=== PATIENT | female | born 1955 | race Caucasian/White ===

== ENCOUNTER 2025-03-02 18:12 | Inpatient (IN) | payer MEDICARE, BC ==
[~2025-03-02] VITALS: Ht 152.4 cm; Wt 57.5 kg
[~2025-03-02 18:12] MED LIST: CHOLPOW; FUROPOW8; LEVOTHROXINE; SOMA; TRAMADOL
--- NOTE | 2025-03-02 19:50 | ED.PDOC ---
History of Present Illness HPI Comments 69-year-old female is brought in by ambulance from private residence for chief complaint of abdominal pain and distention, nausea, vomiting, and generalized weakness. Patient endorses on 2 week history of nausea and vomiting with a additional onset of abdominal distention for 1 week and pain with associated weakness, today. Last bowel movement was yesterday, which the patient described as being hendrickson and mucousy in appearance. She also reports being constipated and having a fever 2 days ago. Significant history for arthritis, hyperlipidemia, hypertension, hypothyroidism, for aside medication use for chronic edema, and tobacco cigarette use. Denies having any chest pain, shortness of breath, lightheadedness, dizziness, or further associated symptoms. REVIEW OF SYSTEMS: General: No fever, no chills, or fatigue HEENT: No sore throat, no earache, no congestion, no neck pain. Cardiac: No chest pain. No palpitations. Lungs: No shortness of breath, no cough. GI: Abdominal pain and distention, nausea, vomiting, no diarrhea, no con stipation : No dysuria, frequency, or urgency. No hematuria. Musculoskeletal: No joint pain , no joint swelling, no extremity edema. Skin: No rash, no itching. Neuro: Generalized weakness, no headache, no dizziness PHYSICAL EXAM: General: Awake, alert and oriented. No acute distress. Skin: Skin in warm, dry and intact. Appropriate color for ethnicity. HEENT: The head is normocephalic and atraumatic. Conjunctivae are clear without exudates or hemorrhage. Sclera is non-icteric. EOM are intact. No signs of nystagmus. Eyelids are normal in appearance without swelling or lesions. Oral mucosa is pink and moist Neck: The neck is supple with normal range of motion. No JVD. Cardiac: Heart rate and rhythm are normal. No murmurs, gallops, or rubs are auscultated. Respiratory: No signs of respiratory distress. Lung sounds are clear in all lobes bilaterally without rales, rhonchi, or wheezes. Abdominal: Abdomen is distended with generalized tenderness and diminished bowel sounds in all 4 quadrants. Remaining abdomen is soft, non-tender without distention, guarding or rigidity. Extremities: Upper and lower extremities are atraumatic in appearance without deformity or edema. Neurological: The patient is awake, alert and oriented to person, place, and time with normal speech. Speech is clear. There is no facial asymmetry. Psychiatric: Appropriate mood and affect. Good judgement and insight. Chief Complaint: Abdominal Pain Time Seen by MD: 19:10 Primary Care Provider: IvetteA Reviewed Notes: Nurses Notes, Lien Searcher Notes, Medications, Allergies Allergies: Coded Allergies: NO KNOWN ALLERGIES (Unverified , 09/29/12) Home Meds Reported Medications [Cholesterol] (Cholesterol) No Conflict Check 09/29/12 [Tramadol] No Conflict Check 09/29/12 [Soma] No Conflict Check 09/29/12 [Furosemide] (Furosemide) No Conflict Check 09/29/12 [Levothroxine] No Conflict Check 09/29/12 Information Source: Patient, Emergency Med Personnel Mode of Arrival: EMS Severity: Moderate Timing: Weeks Duration: Since onset Prehospital treatment: 12 Lead EKG, Accucheck (145), Embedded Software Architect Past Medical History PAST MEDICAL HISTORY: Arthritis, High Lipids, HTN, Thyroid (Hypothyroidism) Past Medical History (Other): Furosemide use for chronic edema Surgical History: Denies all surgeries BASKET PATCHER History: Denies all BASKET PATCHER Hx Family History Family History: Unknown Social History Smoker: Cigarettes Alcohol: Denies ETOH Use Drugs: Denies Drug Use Lives In: Home Was a procedure done? Was a procedure done?: No Differential Dx Considerations may include: Differential diagnoses considered include: Abdominal aortic aneurysm, MN, esophageal rupture, intestinal obstruction, mesenteric ischemia, perforated viscus or solid organ rupture, CHF with hepatomegaly, pneumonia, abscess, appendicitis, biliary disease, diverticulitis, gastritis, gastroenteritis, hepatitis, hernia, inflammatory bowel disease, pancreatitis, peptic ulcer disease, urinary tract infection, ureteral colic, constipation, GERD, irritable syndrome, abdominal wall pain, nonspecific abdominal pain, herpes zoster, nephrolithiasis. X-Ray, Labs, Meds, VS Vital Signs Date Time Temp Pulse Resp B/P (MAP) Pulse Ox O2 Delivery O2 Flow Rate FiO2 03/02/25 23:22 131/46 03/02/25 22:00 97.7 86 24 99/54 (69) 93 97.7 03/02/25 22:00 89 95 Room Air* 0 21 03/02/25 18:15 97.5 88 16 130/55 98 97.5 Lab Test 03/02/25 20:32 Range/Units White Blood Count 32.3 *H 4.4-10.8 10^3/uL Red Blood Count 3.93 L 4.0-5.20 10^6/uL Hemoglobin 5.5 *L 12.2-16.2 g/dL Hematocrit 20.3 L 36.0-46.0 % Mean Corpuscular Volume 51.7 L 80.0-100.0 fL Mean Corpuscular Hemoglobin 14.1 L 28.0-32.0 pg Mean Corpuscular Hemoglobin Concent 27.3 L 32.0-36.0 g/dL Red Cell Distribution Width 21.6 H 11.8-14.3 % Platelet Count 1077 *H 140-450 10^3/uL Mean Platelet Volume 8.1 6.9-10.8 fL Neutrophils (%) (Auto) 37.0-80.0 % Lymphocytes (%) (Auto) 10.0-50.0 % Monocytes (%) (Auto) 0.0-12.0 % Basophils (%) (Auto) 0.0-2.0 % Neutrophils # (Auto) 1.6-8.6 10 ^3/uL Lymphocytes # (Auto) 0.4-5.4 10 ^3/uL Monocytes # (Auto) 0-1.3 10 ^3/uL Differential Total Cells Counted 100.0 100 Neutrophils % (Manual) 86 H 37.0-80.0 Band Neutrophils % (Manual) 6 Lymphocytes % (Manual) 4 L 10.0-50.0 Monocytes % (Manual) 4 0-12 Eosinophils % (Manual) 0 0-7 Basophils % (Manual) 0 0.0-2.0 Metamyelocytes % (manual) 0 Myelocytes % (Manual) 0 Promyelocytes % (Manual) 0 Blast Cells % (Manual) 0 Reactive Lymphocytes 0 Platelet Estimate Markedly increased Hypochromasia (manual) Marked Anisocytosis (manual) Slight Microcytosis Moderate Ovalocytes Few Prothrombin Time 11.2 9.3-11.8 sec Prothrombin Time INR 1.06 0.9-1.15 Sodium Level 132 L 136-145 mmol/L Potassium Level 2.4 *L 3.5-5.1 mmol/L Chloride Level 85 L 98-107 mmol/L Carbon Dioxide Level 34 H 20-31 mmol/L Anion Gap 13 5-15 Blood Urea Nitrogen 36 H 9-23 mg/dL Creatinine 1.38 H 0.550-1.02 mg/dL Glomerular Filtration Rate Calc 41 >90 mL/min BUN/Creatinine Ratio 26.1 H 10.0-20.0 Serum Glucose 119 H 74-106 mg/dL Lactic Acid Level 1.7 0.4-2.0 mmol/L Calcium Level 8.3 L 8.7-10.4 mg/dL Current Medications Medications (Trade) Dose Ordered Sig/Jhoan Route Start Time Stop Time Status Last Admin Sodium Chloride 1,000 ml @ 1,000 mls/hr Q1H ONCE IV 03/02/25 22:00 03/02/25 22:59 DC 03/02/25 22:20 Sodium Chloride 1,000 ml @ 130 mls/hr Q7H42M ONCE IV 03/02/25 22:00 03/03/25 05:41 03/02/25 22:34 Piperacillin Sod/ Tazobactam Sod 100 ml @ 100 mls/hr ONCE ONCE IV 03/02/25 22:00 03/02/25 22:59 DC 03/02/25 22:20 Potassium Chloride 100 ml @ 50 mls/hr Q2H IV 03/02/25 22:00 03/03/25 01:59 DC 03/03/25 00:07 Fentanyl Citrate 50 mcg ONCE ONCE IV 03/02/25 23:00 03/02/25 23:01 DC 03/02/25 23:22 [place] [id number] Ph: [phone] DIAGNOSTIC IMAGING Diagnostic Imaging Report : [id number] Signed with Erich PATIENT: LIBAN BARTON ACCT: [id number] UNIT: [id number] : 1955 LOC: ER ROOM / BED: / AGE / SEX: 69 / F ADM STATUS: REG ER SERVICE 04 ORDERING PHYSICIAN: JD HOLLEY MD PROCEDURE(s): ABPL - CT AB PEL WO CON-NO ORAL OR IV REASON: abdominal pain and distension ORDER NUMBER(s): [id number], ACCESSION NUMBER(s): [id number] ADDENDUM ADDENDUM # 1 Critical Result: Pneumoperitoneum Findings discussed with JD HOLLEY at 03/02/2025 09:18 PM, and acknowledged receipt and understanding of the findings. ORIGINAL REPORT CT SCAN ABDOMEN AND PELVIS WITHOUT CONTRAST CLINICAL HISTORY: abdominal pain and distension TECHNIQUE: Helical axial images are obtained from the lung bases through the pelvis without oral contrast. No intravenous contrast was administered. Coronal and sagittal reformatted images were generated from thin section reconstructions. One or more of the following radiation dose reduction techniques were used for this examination: automated exposure control, adjustment of the mA and/or kV according to patient size, use of iterative reconstruction technique. COMPARISON: None FINDINGS: LOWER THORAX: Atelectasis/ scarring in the right lung base with associated bronchiectatic changes. ABDOMEN AND PELVIS: Evaluation of visceral and vascular structures is limited due to lack of con trast administration. Pneumoperitoneum is noted. Mainly gaseous distention of the small bowel with possible transition in the right lower quadrant. Scattered foci of pneumoperitoneum in the mesentery as well. No significant free fluid identified at this time. Colonic diverticulosis. Proximal sigmoid colon is ill-defined questionable adjacent fat stranding. Diverticulitis not excluded. The unenhanced liver, spleen, pancreas and adrenals appear grossly unremarkable. Gallbladder is distended. No sizable, radiopaque cholelithiasis. Aortoiliac atherosclerotic calcifications. No evidence of abdominal aortic aneurysm. Cortical thinning with cystic/dysplastic changes of the right kidney. Recommend further workup as clinically indicated. No sizable bladder calculus. Coarse uterine calcifications may be related to myomatous disease. Multilevel degenerative changes of the lumbar spine. IMPRESSION: Pneumoperitoneum concerning for hollow viscus perforation. Recommend urgent surgical consultation. Colonic diverticulosis. The proximal sigmoid colon is not well delineated. Questionable adjacent inflammation. Diverticulitis with perforation is also included in the differential diagnosis. Small bowel dilatation with possible transition in the right lower quadrant. This may reflect obstruction or reactive ileus. Other findings as above. ATED BY: LEANDRO PANG MD DICTATED DATE/TIME: 03/02/252120 SIGNED BY: LEANDRO PANG MD SIGNED DATE/TIME: 03/02/252120 CC: CT SCAN ABDOMEN AND PELVIS WITHOUT CONTRAST CLINICAL HISTORY: abdominal pain and distension TECHNIQUE: Helical axial images are obtained from the lung bases through the pelvis without oral contrast. No intravenous contrast was administered. Coronal and sagittal reformatted images were generated from thin section reconstructions. One or more of the following radiation dose reduction techniques were used for this examination: automated exposure control, ad justment of the mA and/or kV according to patient size, use of iterative reconstruction technique. COMPARISON: None FINDINGS: LOWER THORAX: Atelectasis/ scarring in the right lung base with associated bronchiectatic changes. ABDOMEN AND PELVIS: Evaluation of visceral and vascular structures is limited due to lack of contrast administration. Pneumoperitoneum is noted. Mainly gaseous distention of the small bowel with possible transition in the right lower quadrant. Scattered foci of pneumoperitoneum in the mesentery as well. No significant free fluid identified at this time. Colonic diverticulosis. Proximal sigmoid colon is ill-defined questionable adjacent fat stranding. Diverticulitis not excluded. The unenhanced liver, spleen, pancreas and adrenals appear grossly unremarkable. Gallbladder is distended. No sizable, radiopaque cholelithiasis. Aortoiliac atherosclerotic calcifications. No evidence of abdominal aortic aneurysm. Cortical thinning with cystic/dysplastic changes of the right kidney. Recommend further workup as clinically indicated. No sizable bladder calculus. Coarse uterine calcifications may be related to myomatous disease. Multilevel degenerative changes of the lumbar spine. IMPRESSION: Pneumoperitoneum concerning for hollow viscus perforation. Recommend urgent surgical consultation. Colonic diverticulosis. The proximal sigmoid colon is not well delineated. Questionable adjacent inflammation. Diverticulitis with perforation is also included in the differential diagnosis. Small bowel dilatation with possible transition in the right lower quadrant. This may reflect obstruction or reactive ileus. Other findings as above. ATED BY: LEANDRO PANG MD DICTATED DATE/TIME: 03/02/252112 SIGNED BY: LEANDRO PANG MD SIGNED DATE/TIME: 03/02/252112 CC: Time of 1ST Reevaluation: 19:40 Reevaluation 1ST: Unchanged Patient Education/Counseling: Treatment, Other (Need for admission) Family Education/Counseling: No Family Present SEPSIS Sepsis Screen Date sepsis recognized/suspect: Mar 02, 2025 Time Sepsis recognized/suspect: 1814 Recent Procedure: No On Antibiotic Therapy: No Respiratory Rate >20: No Heart Rate >90: No Temp<36 C (96.8 F) or >38.3 C: No SBP <90 or MAP <65 mmHG: No New Acute Mental Status Change: No Is the patient on CPAP, BIPAP,: No Physician Orders Urinalysis (03/02/25 20:05) Ct Ab Pel Wo Con-No Oral Or Iv (03/02/25 20:05) Sodium Chloride 0.9% (03/02/25 22:00) Type And Screen (03/02/25 21:51) * Surgical Consult (03/02/25 ) Blood Culture (03/02/25 21:55) Admit (03/02/25 23:55) Nitroglycerin Sublingual (Ntrostat Subli (03/03/25 00:00) Morphine Sulfate Injection (03/03/25 00:00) Stat Ekg For Chest Pain (03/02/25 23:55) Notify Md Of Changes From Base (03/02/25 23:55) Commission Associate For 24 Hours (03/02/25 23:55) Emergency Dysrhythmia Protocol (03/02/25 23:55) Rhythm Strips Once Every Shift (03/02/25 23:55) Oxygen By Nasal Cannula (03/02/25 23:55) Vital Signs Date Time Temp Pulse Resp B/P (MAP) Pulse Ox O2 Delivery O2 Flow Rate FiO2 03/02/25 23:22 131/46 03/02/25 22:00 97.7 86 24 99/54 (69) 93 97.7 03/02/25 22:00 89 95 Room Air* 0 21 03/02/25 18:15 97.5 88 16 130/55 98 97.5 Laboratory Tests Test 03/02/25 20:32 Lactic Acid Level 1.7 mmol/L (0.4-2.0) White Blood Count 32.3 10^3/uL (4.4-10.8) *H Medications Medications Dose Ordered Sig/Jhoan Route Start Time Stop Time Status Last Admin Dose Admin Fentanyl Citrate 50 mcg ONCE ONCE IV 03/02/25 23:00 03/02/25 23:01 DC 03/02/25 23:22 Piperacillin Sod/ Tazobactam Sod 100 ml @ 100 mls/hr ONCE ONCE IV 03/02/25 22:00 03/02/25 22:59 DC 03/02/25 22:20 Potassium Chloride 100 ml @ 50 mls/hr Q2H IV 03/02/25 22:00 03/03/25 01:59 DC 03/03/25 00:07 Sodium Chloride 1,000 ml @ 130 mls/hr Q7H42M ONCE IV 03/02/25 22:00 03/03/25 05:41 03/02/25 22:34 Sodium Chloride 1,000 ml @ 1,000 mls/hr Q1H ONCE IV 03/02/25 22:00 03/02/25 22:59 DC 03/02/25 22:20 Departure 1 Departure Time of Disposition: 21:55 Impression: Primary Impression: Pneumoperitoneum Additional Impressions: Severe anemia Hypokalemia Renal failure Disposition: ADMITTED INPATIENT Condition: Serious Comments MDM: 69-year-old female who presents to the emergency department with severe abdomina l pain Workup was positive for pneumoperitoneum suggestive of bowel perforation as well as severe anemia requiring blood transfusion Patient at this time is requesting to be DNR/DNI and comfort care only Patient was seen by Dr. Lopez in the emergency department, she declined any surgical intervention as well as blood transfusion Extensive evaluation was performed in attempt to identify or rule out: (See differential diagnosis section) The following tests were ordered, and results were reviewed by me and discussed with patient: (See diagnostic results section) The following test were independently interpreted by me: N/A I reviewed and agreed with the following test results read by other providers: CT abdomen and pelvis without contrast I reviewed the following notes from the pt's past medical encounters: September 29, 2012 encounter for herpes zoster Additional information was gathered from interviewing the following independent historians: EMS personnel Discussion of management or test interpretation with external physician/other qualified health respiratory care technician: @22:[address] Coley, Addressed an acute or chronic illness that poses a threat to life or bodily function: Bowel perforation, severe anemia Decision regarding hospitalization or escalation of hospital level of care: Risk and benefits of admission for further treatment of patient's condition was co nsidered. Due to patient's current clinical condition, high risk of decline and poor outcome if discharged and need for further inpatient management and monitoring, patient will be admitted to the hospital. Drug therapy requiring intensive monitoring for toxicity: N/A Parenteral controlled substances: IV fentanyl Critical Care Note Critical Care Time?: No Stability Stability form required: No Heart Score Heart Score: Heart Score Response (Comments) Value History N/A 0 EKG N/A 0 Age N/A 0 Risk Factors N/A 0 Troponin N/A 0 Total 0 I personally scribed for JD HOLLEY MD ([email or web address]) on 03/02/25 at 19:50. Electronically submitted by Francisco Alvarez ([email or web address]). I personally scribed for JD HOLLEY MD ([email or web address]) on 03/02/25 at 23:07. El ectronically submitted by Francisco Alvarez ([email or web address]). JD HOLLEY MD Mar 02, 2025 19:50
[2025-03-02 21:13] LABS: Anion Gap 13 (5-15)
--- NOTE | 2025-03-02 21:16 | DVH ---
CT SCAN ABDOMEN AND PELVIS WITHOUT CONTRAST CLINICAL HISTORY: abdominal pain and distension TECHNIQUE: Helical axial images are obtained from the lung bases through the pelvis without oral cont rast. No intravenous contrast was administered. Coronal and sagittal reformatted images were generate d from thin section reconstructions. One or more of the following radiation dose reduction techniques were used for this examination: automated exposure control, adjustment of the mA and/or kV according to patient size, use of iterative reconstruction technique. COMPARISON: None FINDINGS: LOWER THORAX: Atelectasis/ scarring in the right lung base with associated bronchiectatic changes. ABDOMEN AND PELVIS: Evaluation of visceral and vascular structures is limited due to lack of contrast administration. Pneumoperitoneum is noted. Mainly gaseous distention of the small bowel with possible transition in t he right lower quadrant. Scattered foci of pneumoperitoneum in the mesentery as well. No significant free fluid identified at this time. Colonic diverticulosis. Proximal sigmoid colon is ill-defined questionable adjacent fat stranding. D iverticulitis not excluded. The unenhanced liver, spleen, pancreas and adrenals appear grossly unremarkable. Gallbladder is distended. No sizable, radiopaque cholelithiasis. Aortoiliac atherosclerotic calcifications. No evidence of abdominal aortic aneurysm. Cortical thinning with cystic/dysplastic changes of the right kidney. Recommend further workup as cli nically indicated. No sizable bladder calculus. Coarse uterine calcifications may be related to myomatous disease. Multilevel degenerative changes of the lumbar spine. IMPRESSION: Pneumoperitoneum concerning for hollow viscus perforation. Recommend urgent surgical consultation. Colonic diverticulosis. The proximal sigmoid colon is not well delineated. Questionable adjacent in flammation. Diverticulitis with perforation is also included in the differential diagnosis. Small bowel dilatation with possible transition in the right lower quadrant. This may reflect obstruc tion or reactive ileus. Other findings as above.
[2025-03-02 21:18] LABS: BUN/Creatinine Ratio 26.1 (10.0-20.0)
[2025-03-02 21:19] LABS: Hematocrit 20.3 % (36.0-46.0); Mean Corpuscular Hemoglobin 14.1 pg (28.0-32.0); Mean Corpuscular Volume 51.7 fL (80.0-100.0)
[2025-03-02 21:36] LABS: Sodium 132 mmol/L (136-145)
[2025-03-02 21:37] LABS: Blood Urea Nitrogen 36 mg/dL (9-23); Calcium 8.3 mg/dL (8.7-10.4); Carbon Dioxide 34 mmol/L (20-31); Chloride 85 mmol/L (98-107); Glucose 119 mg/dL (74-106)
[2025-03-02 21:38] LABS: Potassium 2.4 mmol/L (3.5-5.1)
[2025-03-02 21:50] LABS: Hemoglobin 5.5 g/dL (12.2-16.2)
[2025-03-02 22:00] VITALS: PULSE 89; O2SAT 95
[2025-03-02] MEDS: SODIUM CHLORIDE 0.9% 1,000 ML IV ONE ×2 (22:20→22:34)
[2025-03-02] MEDS: PIPERACILLIN-TAZOB 3.375GM 100 ML IV ONE (22:20)
[2025-03-02 22:26] LABS: INR 1.06 (0.9-1.15); Prothrombin Time 11.2 sec (9.3-11.8)
[2025-03-02 22:28] LABS: Total Cells Counted 100.0 (100)
[2025-03-02 22:29] LABS: Anisocytosis Slight; Ovalocytes FEW
[2025-03-02] MEDS: POTASSIUM CHL 20MEQ/100ML 100 ML IV SCH (22:34)
--- NOTE | 2025-03-02 23:06 | DVHINCON2 ---
Consultation - Surgical Date Seen: Mar 02, 2025 Referring Physician Referring Physician Emergency room Reason for Consultation Perforated bowel with a acute abdomen History of Present Illness History of Present Illness This is a 69-year-old female who has not been to a doctor in approximately 7 or 8 years. She states she has been having abdominal pain for several weeks. She has been losing weight as well. She has has a history of clotting from her bladder which has not been recent. She states she has been without food or water over the last 4 or 5 days. She was able to crawl to the phone today to call 911 she does live alone. She was brought to the emergency room today here at [facility]. Cat scan findings were consistent with free air with possible diverticulosis perforated diverticulitis. [place] [address] with a hemoglobin of 5.5. Her potassium was significantly low. I explained to her severity of her situation. She was very quick to tell me that she is ready to see Jeremy. She states she wants no surgery or any heroic measures including intubation or chest compressions. Her abdomen was distended was rigid and had rebound tenderness. I explained the entire situation to her again as well as with the nurses in the room. She again adamantly stated she has made her well and is asking to speak with her niece in [place] which we daughter on the phone she was able to speak with. The niece's name was Calile. I was able to speak with Callie as well on made her aware of the severity of the situation. At this point in time Mrs. Cai did sign her DNR do not resuscitate or intubate form. She is asking to make herself comfortable. I told her that we will make sure she is comfortable, Allergies and medications Allergies: Coded Allergies: NO KNOWN ALLERGIES (Unverified , 09/29/12) Home Meds Reported Medications [Cholesterol] (Cholesterol) No Conflict Check 09/29/12 [Tramadol] No Conflict Check 09/29/12 [Soma] No Conflict Check 09/29/12 [Furosemide] (Furosemide) No Conflict Check 09/29/12 [Levothroxine] No Conflict Check 09/29/12 Review of systems Review of Systems: GI:Abnormal, :Abnormal Examination Vital signs Vital Signs Date Time Temp Pulse Resp B/P (MAP) Pulse Ox O2 Delivery O2 Flow Rate FiO2 03/02/25 22:00 97.7 86 24 99/54 (09) 93 97.7 Medications Current Medications Medications (Trade) Dose Ordered Sig/Jhoan Route PRN Reason Start Time Stop Time Status Last Admin Potassium Chloride 100 ml @ 50 mls/hr Q2H IV 03/02/25 22:00 03/03/25 01:59 03/02/25 22:34 Laboratory Labs Test 03/02/25 20:32 Range/Units White Blood Count 32.3 *H 4.4-10.8 10^3/uL Red Blood Count 3.93 L 4.0-5.20 10^6/uL Hemoglobin 5.5 *L 12.2-16.2 g/dL Hematocrit 20.3 L 36.0-46.0 % Mean Corpuscular Volume 51.7 L 80.0-100.0 fL Mean Corpuscular Hemoglobin 14.1 L 28.0-32.0 pg Mean Corpuscular Hemoglobin Concent 27.3 L 32.0-36.0 g/dL Red Cell Distribution Width 21.6 H 11.8-14.3 % Platelet Count 1077 *H 140-450 10^3/uL Mean Platelet Volume 8.1 6.9-10.8 fL Neutrophils (%) (Auto) 37.0-80.0 % Lymphocytes (%) (Auto) 10.0-50.0 % Monocytes (%) (Auto) 0.0-12.0 % Basophils (%) (Auto) 0.0-2.0 % Neutrophils # (Auto) 1.6-8.6 10 ^3/uL Lymphocytes # (Auto) 0.4-5.4 10 ^3/uL Monocytes # (Auto) 0-1.3 10 ^3/uL Differential Total Cells Counted 100.0 100 Neutrophils % (Manual) 86 H 37.0-80.0 Band Neutrophils % (Manual) 6 Lymphocytes % (Manual) 4 L 10.0-50.0 Monocytes % (Manual) 4 0-12 Eosinophils % (Manual) 0 0-7 Basophils % (Manual) 0 0.0-2.0 Metamyelocytes % (manual) 0 Myelocytes % (Manual) 0 Promyelocytes % (Manual) 0 Blast Cells % (Manual) 0 Reactive Lymphocytes 0 Platelet Estimate Markedly increased Hypochromasia (manual) Marked Anisocytosis (manual) Slight Microcytosis Moderate Ovalocytes Few Prothrombin Time 11.2 9.3-11.8 sec Prothrombin Time INR 1.06 0.9-1.15 Sodium Level 132 L 136-145 mmol/L Potassium Level 2.4 *L 3.5-5.1 mmol/L Chloride Level 85 L 98-107 mmol/L Carbon Dioxide Level 34 H 20-31 mmol/L Anion Gap 13 5-15 Blood Urea Nitrogen 36 H 9-23 mg/dL Creatinine 1.38 H 0.550-1.02 mg/dL Glomerular Filtration Rate Calc 41 >90 mL/min BUN/Creatinine Ratio 26.1 H 10.0-20.0 Serum Glucose 119 H 74-106 mg/dL Lactic Acid Level 1.7 0.4-2.0 mmol/L Calcium Level 8.3 L 8.7-10.4 mg/dL Examination: ABDOMEN:Abnormal Problem List/Assessment/Plan Problems: (1) Pneumoperitoneum Assessment and Plan This is a 69-year-old female who has not been to a doctor in approximately 7 or 8 years. She states she has been having abdominal pain for several weeks. She has been losing weight as well. She has has a history of clotting from her bladder which has not been recent. She states she has been without food or water over the last 4 or 5 days. She was able to crawl to the phone today to call 911 she does live alone. She was brought to the emergency room today here at [facility]. Cat scan findings were consistent with free air with possible diverticulosis perforated diverticulitis. [place] [address] with a hemoglobin of 5.5. Her potassium was significantly low. I explained to her severity of her situation. She was very quick to tell me that she is ready to see Jeremy. She states she wants no surgery or any heroic measures including intubation or chest compressions. Her abdomen was distended was rigid and had rebound tenderness. I explained the entire situation to her again as well as with the nurses in the room. She again adamantly stated she has made her well and is asking to speak with her niece in [place] which we daughter on the phone she was able to speak with. The niece's name was Callie. I was able to speak with Callie as well on made her aware of the severity of the situation. At this point in time Mrs. Cai did sign her DNR do not resuscitate or intubate form. She is asking to make herself comfortable. I told her that we will make sure she is comfortable, Plan discussed with Plan discussed with: Patient, Other (Maria E in [place]) Visit Coding Surgery Date of Service if different f: Mar 02, 2025 Billing Provider: CLAUDE JONES Jr., MD Surgery Visit Codes: 27098 - INP CONSULT <80 MIN CLAUDE JONES Jr., MD Mar 02, 2025 23:06
[2025-03-02] MEDS: fentaNYL CITRATE 100 MCG/2 ML VL IV ONE (23:22)
[2025-03-03] MEDS ORDERED: NITROGLYCERIN 0.4 MG SL TAB SL PRN
[2025-03-03] MEDS: fentaNYL CITRATE 100 MCG/2 ML VL IV ONE
[2025-03-03] MEDS ORDERED: MORPHINE SULFATE INJ 2 MG/ml SYRG IV PRN
[2025-03-03] MEDS ORDERED: VANCOMYCIN PER PHARMACY 0 MG IV SCH (00:30)
--- NOTE | 2025-03-03 00:34 | DVHHP2 ---
History of Present Illness Reason for Visit: Abdominal pain History of Present Illness 69-year-old female presents for evaluation of abdominal pain. The patient endorses a one-week history of diffuse abdominal pain which exacerbated today. She reports nausea and not having a bowel movement for two days. She also reports intermittent fevers for two days. Patient was found to have a pneumoperitoneum. Surgical consult was placed and the patient was evaluated in the ER. Patient was to be DNR/comfort measures only. Refusing blood transfusion or surgical intervention. She does agree to antibiotics and IV fluids. Past Medical History Hypertension, hypothyroid, dyslipidemia Past Surgical History Denies Family History Noncontributory Smoke: <1 pack per day ALCOHOL: none Drugs: None Lives: with Family Review of Systems Review of Systems Review of systems are currently negative otherwise addressed in HPI. Allergies: Coded Allergies: NO KNOWN ALLERGIES (Unverified , 09/29/12) Medications Current Medications Medications Dose Ordered Sig/Jhoan Route Start Time Stop Time Status Last Admin Dose Admin Potassium Chloride 100 ml @ 50 mls/hr Q2H IV 03/02/25 22:00 03/03/25 01:59 03/03/25 00:07 50 MLS/HR Nitroglycerin 0.4 mg Q5MINP PRN SL 03/03/25 00:00 Morphine Sulfate 2 mg Q30M PRN IV 03/03/25 00:00 Exam Vital Signs Vital Signs Date Time Temp Pulse Resp B/P (MAP) Pulse Ox O2 Delivery O2 Flow Rate FiO2 03/02/25 23:22 131/46 03/02/25 22:00 97.7 86 24 93 97.7 03/02/25 22:00 Room Air* 0 21 Exam Gen: 69-year-old female in mild distress Skin: Warm, dry, normal color and texture, no rash. HEENT: Normocephalic atraumatic, mucous membranes moist and pink. Neck: Cervical and supraclavicular nodes normal without enlargement, trachea is midline, thyroid gland is normal without masses. Pulmonary: Clear to auscultation and percussion bilaterally. Cardiac: Regular rate and rhythm. No murmur Abdomen: Soft, distended with diffuse tenderness, bowel sounds present all 4 quadrants, no guarding, no rigidity, no organomegaly. Extremities: No cyanosis, clubbing, no edema Neuro: Cranial nerves II through XII grossly intact, normal affect and speech, no focal motor deficits. Labs/Xrays ORDERING PHYSICIAN: JD HOLLEY MD PROCEDURE(s): ABPL - CT AB PEL WO CON-NO ORAL OR IV REASON: abdominal pain and distension ORDER NUMBER(s): [id number], ACCESSION NUMBER(s): [id number] ADDENDUM ADDENDUM # 1 Critical Result: Pneumoperitoneum Findings discussed with JD HOLLEY at 03/02/2025 09:18 PM, and acknowledged receipt and understanding of the findings. ORIGINAL REPORT CT SCAN ABDOMEN AND PELVIS WITHOUT CONTRAST CLINICAL HISTORY: abdominal pain and distension TECHNIQUE: Helical axial images are obtained from the lung bases through the pelvis without oral contrast. No intravenous contrast was administered. Coronal and sagittal reformatted images were generated from thin section reconstructions. One or more of the following radiation dose reduction techniques were used for this examination: automated exposure control, adjustment of the mA and/or kV according to patient size, use of iterative reconstruction technique. COMPARISON: None FINDINGS: LOWER THORAX: Atelectasis/ scarring in the right lung base with associated bronchiectatic changes. ABDOMEN AND PELVIS: Evaluation of visceral and vascular structures is limited due to lack of contrast administration. Pneumoperitoneum is noted. Mainly gaseous distention of the small bowel with possible transition in the right lower quadrant. Scattered foci of pneumoperitoneum in the mesentery as well. No significant free fluid identified at this time. Colonic diverticulosis. Proximal sigmoid colon is ill-defined questionable adjacent fat stranding. Diverticulitis not excluded. The unenhanced liver, spleen, pancreas and adrenals appear grossly unremarkable. Gallbladder is distended. No sizable, radiopaque cholelithiasis. Aortoiliac atherosclerotic calcifications. No evidence of abdominal aortic aneurysm. Cortical thinning with cystic/dysplastic changes of the right kidney. Recommend further workup as clinically indicated. No sizable bladder calculus. Coarse uterine calcifications may be related to myomatous disease. Multilevel degenerative changes of the lumbar spine. IMPRESSION: Pneumoperitoneum concerning for hollow viscus perforation. Recommend urgent surgical consultation. Colonic diverticulosis. The proximal sigmoid colon is not well delineated. Questionable adjacent inflammation. Diverticulitis with perforation is also in cluded in the differential diagnosis. Small bowel dilatation with possible transition in the right lower quadrant. This may reflect obstruction or reactive ileus. Other findings as above. ATED BY: LEANDRO GASTELUM MD DICTATED DATE/TIME: 03/02/252120 SIGNED BY: LEANDRO GASTELUM MD SIGNED DATE/TIME: 03/02/252120 CC: CT SCAN ABDOMEN AND PELVIS WITHOUT CONTRAST CLINICAL HISTORY: abdominal pain and distension TECHNIQUE: Helical axial images are obtained from the lung bases through the pelvis without oral contrast. No intravenous contrast was administered. Coronal and sagittal reformatted images were generated from thin section reconstructions. One or more of the following radiation dose reduction techniques were used for this examination: automated exposure control, adjustment of the mA and/or kV according to patient size, use of iterative reconstruction technique. COMPARISON: None FINDINGS: LOWER THORAX: Atelectasis/ scarring in the right lung base with associated bronchiectatic changes. ABDOMEN AND PELVIS: Evaluation of visceral and vascular structures is limited due to lack of contrast administration. Pneumoperitoneum is noted. Mainly gaseous distention of the small bowel with possible transition in the right lower quadrant. Scattered foci of pneumoperitoneum in the mesentery as well. No significant free fluid identified at this time. Colonic diverticulosis. Proximal sigmoid colon is ill-defined questionable adjacent fat stranding. Diverticulitis not excluded. The unenhanced liver, spleen, pancreas and adrenals appear grossly unremarkable. Gallbladder is distended. No sizable, radiopaque cholelithiasis. Aortoiliac atherosclerotic calcifications. No evidence of abdominal aortic aneurysm. Cortical thinning with cystic/dysplastic changes of the right kidney. Recommend further workup as clinically indicated. No sizable bladder calculus. Coarse uterine calcifications may be related to myomatous disease. Multilevel degenerative changes of the lumbar spine. IMPRESSION: Pneumoperitoneum concerning for hollow viscus perforation. Recommend urgent surgical consultation. Colonic diverticulosis. The proximal sigmoid colon is not well delineated. Questionable adjacent inflammation. Diverticulitis with perforation is also included in the differential diagnosis. Small bowel dilatation with possible transition in the right lower quadrant. This may reflect obstruction or reactive ileus. Other findings as above. ATED BY: LEANDRO GASTELUM MD Labs Test 03/02/25 20:32 Range/Units White Blood Count 32.3 *H 4.4-10.8 10^3/uL Red Blood Count 3.93 L 4.0-5.20 10^6/uL Hemoglobin 5.5 *L 12.2-16.2 g/dL Hematocrit 20.3 L 36.0-46.0 % Mean Corpuscular Volume 51.7 L 80.0-100.0 fL Mean Corpuscular Hemoglobin 14.1 L 28.0-32.0 pg Mean Corpuscular Hemoglobin Concent 27.3 L 32.0-36.0 g/dL Red Cell Distribution Width 21.6 H 11.8-14.3 % Platelet Count 1077 *H 140-450 10^3/uL Mean Platelet Volume 8.1 6.9-10.8 fL Neutrophils (%) (Auto) 37.0-80.0 % Lymphocytes (%) (Auto) 10.0-50.0 % Monocytes (%) (Auto) 0.0-12.0 % Basophils (%) (Auto) 0.0-2.0 % Neutrophils # (Auto) 1.6-8.6 10 ^3/uL Lymphocytes # (Auto) 0.4-5.4 10 ^3/uL Monocytes # (Auto) 0-1.3 10 ^3/uL Differential Total Cells Counted 100.0 100 Neutrophils % (Manual) 86 H 37.0-80.0 Band Neutrophils % (Manual) 6 Lymphocytes % (Manual) 4 L 10.0-50.0 Monocytes % (Manual) 4 0-12 Eosinophils % (Manual) 0 0-7 Basophils % (Manual) 0 0.0-2.0 Metamyelocytes % (manual) 0 Myelocytes % (Manual) 0 Promyelocytes % (Manual) 0 Blast Cells % (Manual) 0 Reactive Lymphocytes 0 Platelet Estimate Markedly increased Hypochromasia (manual) Marked Anisocytosis (manual) Slight Microcytosis Moderate Ovalocytes Few Prothrombin Time 11.2 9.3-11.8 sec Prothrombin Time INR 1.06 0.9-1.15 Sodium Level 132 L 136-145 mmol/L Potassium Level 2.4 *L 3.5-5.1 mmol/L Chloride Level 85 L 98-107 mmol/L Carbon Dioxide Level 34 H 20-31 mmol/L Anion Gap 13 5-15 Blood Urea Nitrogen 36 H 9-23 mg/dL Creatinine 1.38 H 0.550-1.02 mg/dL Glomerular Filtration Rate Calc 41 >90 mL/min BUN/Creatinine Ratio 26.1 H 10.0-20.0 Serum Glucose 119 H 74-106 mg/dL Lactic Acid Level 1.7 0.4-2.0 mmol/L Calcium Level 8.3 L 8.7-10.4 mg/dL SEPSIS Sepsis Screen Date sepsis recognized/suspect: Mar 02, 2025 Time Sepsis recognized/suspect: 2228 Recent Procedure: No On Antibiotic Therapy: No Respiratory Rate >20: Yes Heart Rate >90: No Temp<36 C (96.8 F) or >38.3 C: No SBP <90 or MAP <65 mmHG: No New Acute Mental Status Change: No Is the patient on CPAP, BIPAP,: No Physician Orders Urinalysis (03/02/25 20:05) Ct Ab Pel Wo Con-No Oral Or Iv (03/02/25 20:05) Sodium Chloride 0.9% (03/02/25 22:00) Type And Screen (03/02/25 21:51) * Surgical Consult (03/02/25 ) Blood Culture (03/02/25 21:55) Potassium Chl 20meq/100ml (03/02/25 22:00) Admit (03/02/25 23:55) Nitroglycerin Sublingual (Ntrostat Subli (03/03/25 00:00) Morphine Sulfate Injection (03/03/25 00:00) Stat Ekg For Chest Pain (03/02/25 23:55) Notify Of Changes From Base (03/02/25 23:55) Coil Winder For 24 Hours (03/02/25 23:55) Emergency Dysrhythmia Protocol (03/02/25 23:55) Rhythm Strips Once Every Shift (03/02/25 23:55) Oxygen By Nasal Cannula (03/02/25 23:55) Zosyn Extended Infusion (03/03/25 06:00) Vancomycin Per Pharmacy (03/03/25 00:30) D5w/Sod Chlo 0.9% Ns (03/03/25 00:30) Hydromorphone Injection (Dilaudid Inject (03/03/25 00:30) Npo (Nothing By Mouth) Diet (03/03/25 Breakfast) DNR (03/03/25 00:30) Npo Except Ice Chips (03/03/25 00:27) Vital Signs Date Time Temp Pulse Resp B/P (MAP) Pulse Ox O2 Delivery O2 Flow Rate FiO2 03/02/25 23:22 131/46 03/02/25 22:00 97.7 86 24 99/54 (69) 93 97.7 03/02/25 22:00 89 95 Room Air* 0 21 03/02/25 18:15 97.5 88 16 130/55 98 97.5 Laboratory Tests Test 03/02/25 20:32 Lactic Acid Level 1.7 mmol/L (0.4-2.0) White Blood Count 32.3 10^3/uL (4.4-10.8) *H Medications Medications Dose Ordered Sig/Jhoan Route Start Time Stop Time Status Last Admin Dose Admin Fentanyl Citrate 50 mcg ONCE ONCE IV 03/02/25 23:00 03/02/25 23:01 DC 03/02/25 23:22 50 MCG Piperacillin Sod/ Tazobactam Sod 100 ml @ 100 mls/hr ONCE ONCE IV 03/02/25 22:00 03/02/25 22:59 DC 03/02/25 22:20 100 MLS/HR Potassium Chloride 100 ml @ 50 mls/hr Q2H IV 03/02/25 22:00 03/03/25 01:59 03/03/25 00:07 50 MLS/HR Sodium Chloride 1,000 ml @ 130 mls/hr Q7H42M ONCE IV 03/02/25 22:00 03/03/25 05:41 03/02/25 22:34 130 MLS/HR Sodium Chloride 1,000 ml @ 1,000 mls/hr Q1H ONCE IV 03/02/25 22:00 03/02/25 22:59 DC 03/02/25 22:20 1,000 MLS/HR Assessment/Plan Assessment/Plan Assessment Pneumoperitoneum Leukocytosis Plan Admit the patient to telemetry to the hospitalist Patient is DNR/comfort measures only Continue antibiotics Maintenance IV fluids Pain management Continue treatment per orders. Plan discussed with: Patient My Orders Orders - GWEN ORR Procedure Category Date Status Time Admit ADMIT 03/02/25 Transmitted 23:55 Nitroglycerin [facility] 03/03/25 In Process Sublingual (Ntrostat 00:00 Morphine Sulfate [facility] 03/03/25 In Process Injection 00:00 Stat Ekg For Chest [facility] 03/02/25 In Process Pain 23:55 Notify Md Of Changes [facility] 03/02/25 In Process From Base 23:55 Coil Winder For [facility] 03/02/25 In Process 24 Hours 23:55 Emergency Dysrhythmia [facility] 03/02/25 In Process Protocol 23:55 Rhythm Strips Once [facility] 03/02/25 In Process Every Shift 23:55 Oxygen By Nasal RT 03/02/25 Transmitted Cannula 23:55 Zosyn Extended [facility] 03/03/25 Transmitted Infusion 06:00 Vancomycin Per [facility] 03/03/25 Transmitted Pharmacy 00:30 D5w/Sod Chlo 0.9% Ns [facility] 03/03/25 Transmitted 00:30 Hydromorphone [facility] 03/03/25 Transmitted Injection (Dilaudid 00:30 Npo (Nothing By DIET 03/03/25 Transmitted Mouth) Diet Breakfast DNR [facility] 03/03/25 In Process 00:30 Npo Except Ice Chips [facility] 03/03/25 In Process 00:27 Date of Service: Mar 02, 2025 Billing Provider: GWEN ORR Common Visit Codes: [id number] INP/OBS CARE (HIGH) [facility] ORR Mar 03, 2025 00:34
[2025-03-03] MEDS: HYDROmorphone HCL 2 MG/ML VL/or syr IV ONE (00:59)
[2025-03-03] MEDS: D5W/SOD CHLO 0.9% 1,000 ML IV SCH (03:57)
[2025-03-03] MEDS: PIPERACILLIN-TAZOB 3.375GM 100 ML IV SCH (06:47)
[2025-03-03] MEDS: HYDROmorphone HCL 2 MG/ML VL/or syr IV PRN (07:00)
--- NOTE | 2025-03-03 11:21 | DVHPN2 ---
Subjective Patient continues to report having abdominal pain Reviewed: Care Plan, H&P, Labs, Medications Changes from previous H/P or p: No Changes General: Per HPI Objective Vitals Vital Signs Date Time Temp Pulse Resp B/P (MAP) Pulse Ox O2 Delivery O2 Flow Rate FiO2 03/03/25 10:00 82 15 118/85 (96) 96 03/03/25 08:00 Room Air* 0 21 03/03/25 08:00 97.6 97.6 Intake/Output Intake and Output 03/03/25 07:00 Intake Total 1280 ml Balance 1280 ml Intake IV Total 1280 ml General Appearance: Alert, Oriented X3, Cooperative, mild distress HEENT: Atraumatic, PERRLA Cardiovascular: Normal S1, Normal S2 Abdomen: Other (Distended abdomen with tenderness with light palpation. Hypoactive bowel sounds.) Genitourinary: No Apparent Abnormalities Skin: Dry, Intact Psych/Mental Status: Mental status NL, Mood NL Medications Current Medications Medications Dose Ordered Sig/Jhoan Route Start Time Stop Time Status Last Admin Dose Admin Nitroglycerin 0.4 mg Q5MINP PRN SL 03/03/25 00:00 Morphine Sulfate 2 mg Q30M PRN IV 03/03/25 00:00 Piperacillin Sod/ Tazobactam Sod 100 ml @ 25 mls/hr Q8HR IV 03/03/25 06:00 03/03/25 06:47 25 MLS/HR Vancomycin HCl 0 ml @ 0 mls/hr UD IV 03/03/25 00:30 Hydromorphone HCl 0.5 mg Q3HPRN PRN IV 03/03/25 00:30 03/03/25 07:00 0.5 MG Potassium Chloride/Dextrose/ Sod Cl 1,000 ml @ 100 mls/hr Q10H IV 03/03/25 10:15 UNV Pantoprazole Sodium 40 mg DAILY IV 03/04/25 10:00 UNV Ondansetron HCl 4 mg Q6HPRN PRN IV 03/03/25 11:15 UNV Laboratory Results Laboratory Tests 03/02/25 20:32 Chemistry Test 03/02/25 20:32 Calcium Level 8.3 mg/dL (8.7-10.4) L Coagulation Test 03/02/25 20:32 Prothrombin Time 11.2 sec (9.3-11.8) Prothrombin Time INR 1.06 (0.9-1.15) Labs and/or images reviewed: Labs reviewed by me, Image(s) reviewed by me Assessment/Plan Assessment/Plan Impression: -severe sepsis secondary to perforated viscus -? Perforated diverticulum -acute kidney injury, vasomotor nephropathy -anemia -thrombocytosis -hypothyroidism -primary hypertension Plan: -surgical consultation: Dr. Coley discussed surgical intervention with the patient, with this time is wishing for medical treatment only. -PRBC transfusion x2 -empiric antibiotic therapy -code status: DNR/DNI -PPI -NPO status other than ice chips -pain management -social service consultation to assist with obtaining family contacts -repeat labs in a.m. -overall poor prognosis. We will discuss with the patient and family once contacts obtain possible discharge with hospice. Total time spent with patient discussing and formulating plan of care: 35 minutes. This medical document was created using an electronic medical record system with [employer] dictation system. Although this document has been carefully reviewed, there may still be some phonetic and typographical errors. These areas are purely typographical due to imperfections of the software programs, and do not reflect any compromise in the patient's medical care. Plan discussed with: Patient, Other (RN) My Orders Orders - TOY ROMEO NP Procedure Category Date Status Time D5w/Sod Chl 0.9%/Kcl PHA 03/03/25 Logged 40meq 10:15 Comprehensive LAB 03/04/25 Verified Metabolic Panel 04:00 Complete Blood Count LAB 03/04/25 Verified 04:00 Pantoprazole PHA 03/04/25 Logged (Protonix) 10:00 * [employer] CONS 03/03/25 Transmitted Consult Ondansetron Hcl PHA 03/03/25 Logged (Zofran) 11:15 Date of Service: Mar 03, 2025 Billing Provider: TOY ROMEO NP Common Visit Codes: [id number] INP/OBS CARE(HIGH) Secondary Visit Codes: [id number] CARE PLAN 30 MINUTES TOY ROMEO NP Mar 03, 2025 11:21
[2025-03-03] MEDS: D5W/SOD CHL 0.9%/KCL 40MEQ 1,000 ML IV SCH (13:00)
[2025-03-03] MEDS: ONDANSETRON HCL 4 MG/2 ML VIAL IV PRN (13:39)
[2025-03-03 16:33] LABS: Hematocrit 16.2 % (36.0-46.0)
[2025-03-03 16:35] LABS: Hemoglobin 4.5 g/dL (12.2-16.2)
[2025-03-03 20:00] VITALS: PULSE 77
[2025-03-03 20:20] VITALS: BP 103/57; PULSE 71; PULSE 76; RESP 14; RESP 15; TEMP 98.5; O2SAT 100
[2025-03-03 21:00] VITALS: BP 102/56; PULSE 76; RESP 14; TEMP 97.4; O2SAT 100
[2025-03-04] VITALS (8 sets, daily range): BP systolic 90–113; BP diastolic 55–69; PULSE 72–84; RESP 16–18; TEMP 97–97.9; O2SAT 98–100
[2025-03-04 07:40] LABS: Hematocrit 15.4 % (36.0-46.0); Mean Corpuscular Hemoglobin 15.4 pg (28.0-32.0); Mean Corpuscular Volume 54.9 fL (80.0-100.0)
[2025-03-04 07:43] LABS: Hemoglobin 4.3 g/dL (12.2-16.2)
[2025-03-04 07:49] LABS: Alanine Aminotransferase 12 U/L (7-40); Alkaline Phosphatase 113 U/L (46-116); Anion Gap 9 (5-15); BUN/Creatinine Ratio 19.1 (10.0-20.0); Blood Urea Nitrogen 21 mg/dL (9-23); Carbon Dioxide 26 mmol/L (20-31); Chloride 102 mmol/L (98-107); Sodium 137 mmol/L (136-145)
[2025-03-04 08:00] LABS: Albumin 2.9 g/dL (3.2-4.8); Bilirubin, Total 0.2 mg/dL (0.2-1.0); Calcium 7.5 mg/dL (8.7-10.4); Glucose 122 mg/dL (74-106); Potassium 3.4 mmol/L (3.5-5.1); Total Protein 5.3 g/dL (5.7-8.2)
[2025-03-04 09:01] LABS: Total Cells Counted 100.0 (100)
[2025-03-04 09:02] LABS: Anisocytosis Slight
[2025-03-04] MEDS ORDERED: MORPHINE SULFATE INJ 2 MG/ml SYRG IV PRN (10:00)
[2025-03-04] MEDS ORDERED: LORazepam 2MG/ML-1ML VIAL IV PRN (10:00)
--- NOTE | 2025-03-04 10:02 | DVHPN2 ---
Subjective Patient continues to report having abdominal pain Reviewed: Care Plan, H&P, Labs, Medications Changes from previous H/P or p: No Changes General: Per HPI Objective Vitals Vital Signs Date Time Temp Pulse Resp B/P (MAP) Pulse Ox O2 Delivery O2 Flow Rate FiO2 03/04/25 09:00 97.8 80 18 100/69 (79) 100 97.8 03/03/25 20:20 Nasal Cannula* 4 36 Intake/Output Intake and Output 03/04/25 07:00 Intake Total 700 ml Balance 700 ml Intake Oral 0 ml IV Total 700 ml # Voids 1 General Appearance: Alert, Oriented X3, Cooperative, mild distress HEENT: Atraumatic, PERRLA Cardiovascular: Normal S1, Normal S2 Abdomen: Other (Distended abdomen with tenderness with light palpation. Hypoactive bowel sounds.) Genitourinary: No Apparent Abnormalities Skin: Dry, Intact Psych/Mental Status: Mental status NL, Mood NL Medications Current Medications Medications Dose Ordered Sig/Jhoan Route Start Time Stop Time Status Last Admin Dose Admin Nitroglycerin 0.4 mg Q5MINP PRN SL 03/03/25 00:00 Morphine Sulfate 2 mg Q30M PRN IV 03/03/25 00:00 Piperacillin Sod/ Tazobactam Sod 100 ml @ 25 mls/hr Q8HR IV 03/03/25 06:00 03/04/25 06:33 25 MLS/HR Vancomycin HCl 0 ml @ 0 mls/hr UD IV 03/03/25 00:30 Hydromorphone HCl 0.5 mg Q3HPRN PRN IV 03/03/25 00:30 03/04/25 06:30 0.5 MG Potassium Chloride/Dextrose/ Sod Cl 1,000 ml @ 100 mls/hr Q10H IV 03/03/25 10:15 03/04/25 00:29 100 MLS/HR Pantoprazole Sodium 40 mg DAILY IV 03/04/25 10:00 Ondansetron HCl 4 mg Q6HPRN PRN IV 03/03/25 11:15 03/03/25 17:48 4 MG Laboratory Results Laboratory Tests 03/04/25 06:50 Chemistry Test 03/04/25 06:50 Albumin 2.9 g/dL (3.2-4.8) L Calcium Level 7.5 mg/dL (8.7-10.4) L Total Protein 5.3 g/dL (5.7-8.2) L LFT Test 03/04/25 06:50 Alanine Aminotransferase (ALT) 12 U/L (7-40) Alkaline Phosphatase 113 U/L (46-116) Aspartate Amino Transferase (AST) 22 U/L (13-40) Total Bilirubin 0.2 mg/dL (0.2-1.0) Microbiology Microbiology Date/Time Source Procedure Growth Status 03/02/25 22:00 Blood Blood Culture - Preliminary NO GROWTH AFTER 24 HOURS OF INCUBATION. Resulted Labs and/or images reviewed: Labs reviewed by me, Image(s) reviewed by me Assessment/Plan Assessment/Plan Impression: -severe sepsis secondary to perforated viscus -? Perforated diverticulum -acute kidney injury, vasomotor nephropathy -anemia -thrombocytosis -hypothyroidism -primary hypertension Plan: Events: Patient continues to refuse blood transfusion, surgery. Once continued medical treatment with IV pain medication -PRBC transfusion x2 -empiric antibiotic therapy -code status: DNR/DNI -PPI -IV morphine and Ativan PRN -NPO status other than ice chips -plan of care discussed with the patient's son, Santo Noel. Total time spent with patient discussing and formulating plan of care: 35 minutes. This medical document was created using an electronic medical record system with [employer] dictation system. Although this document has been carefully reviewed, there may still be some phonetic and typographical errors. These areas are purely typographical due to imperfections of the software programs, and do not reflect any compromise in the patient's medical care. Plan discussed with: Patient, Son, Other (RN) My Orders Orders - TOY ROMEO [employer]IST Procedure Category Date Status Time D5w/Sod Chl 0.9%/Kcl PHA 03/03/25 In Process 40meq 10:15 Pantoprazole PHA 03/04/25 In Process (Protonix) 10:00 Ondansetron Hcl PHA 03/03/25 In Process (Zofran) 11:15 * Awning Maker CONS 03/03/25 Transmitted Consult 23:05 * Dietary Consult CONS 03/03/25 Transmitted 23:05 Code Status CODE 03/04/25 Verified 09:46 Morphine Sulfate PHA 03/04/25 Verified Injection 10:00 Date of Service: Mar 04, 2025 Billing Provider: TOY ROMEO NP Common Visit Codes: [id number] INP/OBS CARE(HIGH) TOY ROMEO NP Mar 04, 2025 10:02
[2025-03-04] MEDS: PANTOPRAZOLE 40 MG/10 ML VIAL INJ IV SCH (10:03)
[2025-03-04] MEDS: MORPHINE SULFATE INJ 2 MG/ml SYRG IV PRN (15:04)
[2025-03-04] MEDS: VANCOMYCIN 1GM/250ML KIT 250 ML IV SCH (16:09)
[2025-03-05] VITALS (8 sets, daily range): BP systolic 94–122; BP diastolic 41–73; PULSE 72–120; RESP 16–22; TEMP 97.2–98.9; O2SAT 75–98
[2025-03-06 01:00] VITALS: BP 120/73; PULSE 120; RESP 19; TEMP 98.9; O2SAT 75
[2025-03-06 05:00] VITALS: BP 84/57; PULSE 104; RESP 20; TEMP 97.7; O2SAT 76
[2025-03-06 08:48] VITALS: BP 130/82; PULSE 109; RESP 20; TEMP 98.2; O2SAT 97
--- NOTE | 2025-03-11 15:00 | DVHPN2 ---
Subjective Patient continues to report having abdominal pain Reviewed: Care Plan, H&P, Labs, Medications Changes from previous H/P or p: No Changes General: Per HPI Objective General Appearance: Alert, Oriented X3, Cooperative, mild distress HEENT: Atraumatic, PERRLA Cardiovascular: Normal S1, Normal S2 Abdomen: Other (Distended abdomen with tenderness with light palpation. Hypoactive bowel sounds.) Genitourinary: No Apparent Abnormalities Skin: Dry, Intact Psych/Mental Status: Mental status NL, Mood NL Laboratory Results Laboratory Tests 03/04/25 06:50 03/05/25 06:17 Microbiology Microbiology Date/Time Source Procedure Growth Status 03/02/25 22:00 Blood Blood Culture - Final NO GROWTH AFTER 5 DAYS OF INCUBATION. Complete Labs and/or images reviewed: Labs reviewed by me, Image(s) reviewed by me Assessment/Plan Assessment/Plan Impression: -severe sepsis secondary to perforated viscus -? Perforated diverticulum -acute kidney injury, vasomotor nephropathy -anemia -thrombocytosis -hypothyroidism -primary hypertension Plan: Events: Plans for DC with Hospice -empiric antibiotic therapy -code status: DNR/DNI -PPI -IV morphine and Ativan PRN -NPO status other than ice chips -plan of care discussed with the patient's Niece who was bedside. Total time spent with patient discussing and formulating plan of care: 35 minutes. This medical document was created using an electronic medical record system with [employer] dictation system. Although this document has been carefully reviewed, there may still be some phonetic and typographical errors. These areas are purely typographical due to imperfections of the software programs, and do not reflect any compromise in the patient's medical care. Plan discussed with: Patient, Other (Niece) Date of Service: Mar 05, 2025 Billing Provider: TOY ROMEO NP Common Visit Codes: [id number] INP/OBS CARE (HIGH) TOY ROMEO NP Mar 11, 2025 15:00
--- NOTE | 2025-03-11 15:04 | DVHDS2 ---
Discharge Summary Date of Admission Mar 02, 2025 at 23:55 Date of Discharge: Mar 05, 2025 Admitting Diagnosis Pneumoperitoneum Labs/Diagnostic Data: Laboratory Results Test 03/05/25 06:17 03/04/25 06:50 03/02/25 20:32 Creatinine 1.11 mg/dL (0.550-1.02) Glomerular Filtration Rate Calc 53 mL/min (>90) White Blood Count 29.7 10^3/uL (4.4-10.8) Red Blood Count 2.80 10^6/uL (4.0-5.20) Hemoglobin 4.3 g/dL (12.2-16.2) Hematocrit 15.4 % (36.0-46.0) Mean Corpuscular Volume 54.9 fL (80.0-100.0) Mean Corpuscular Hemoglobin 15.4 pg (28.0-32.0) Mean Corpuscular Hemoglobin Concent 28.0 g/dL (32.0-36.0) Red Cell Distribution Width 21.9 % (11.8-14.3) Platelet Count 693 10^3/uL (140-450) Mean Platelet Volume 8.0 fL (6.9-10.8) Neutrophils (%) (Auto) % (37.0-80.0) Lymphocytes (%) (Auto) % (10.0-50.0) Monocytes (%) (Auto) % (0.0-12.0) Basophils (%) (Auto) % (0.0-2.0) Neutrophils # (Auto) 10 ^3/uL (1.6-8.6) Lymphocytes # (Auto) 10 ^3/uL (0.4-5.4) Monocytes # (Auto) 10 ^3/uL (0-1.3) Differential Total Cells Counted 100.0 (100) Neutrophils % (Manual) 94 (37.0-80.0) Band Neutrophils % (Manual) 0 Lymphocytes % (Manual) 2 (10.0-50.0) Monocytes % (Manual) 4 (0-12) Eosinophils % (Manual) 0 (0-7) Basophils % (Manual) 0 (0.0-2.0) Metamyelocytes % (manual) 0 Myelocytes % (Manual) 0 Promyelocytes % (Manual) 0 Blast Cells % (Manual) 0 Reactive Lymphocytes 0 Platelet Estimate Increased Hypochromasia (manual) Marked Anisocytosis (manual) Slight Microcytosis Marked Sodium Level 137 mmol/L (136-145) Potassium Level 3.4 mmol/L (3.5-5.1) Chloride Level 102 mmol/L (98-107) Carbon Dioxide Level 26 mmol/L (20-31) Anion Gap 9 (5-15) Blood Urea Nitrogen 21 mg/dL (9-23) BUN/Creatinine Ratio 19.1 (10.0-20.0) Serum Glucose 122 mg/dL (74-106) Calcium Level 7.5 mg/dL (8.7-10.4) Total Bilirubin 0.2 mg/dL (0.2-1.0) Aspartate Amino Transferase (AST) 22 U/L (13-40) Alanine Aminotransferase (ALT) 12 U/L (7-40) Alkaline Phosphatase 113 U/L (46-116) Total Protein 5.3 g/dL (5.7-8.2) Albumin 2.9 g/dL (3.2-4.8) Random Vancomycin Level 7.1 ug/mL (5-10) Ovalocytes Few Prothrombin Time 11.2 sec (9.3-11.8) Prothrombin Time INR 1.06 (0.9-1.15) Lactic Acid Level 1.7 mmol/L (0.4-2.0) Other Laboratory Tests 03/05/25 06:17 03/04/25 06:50 Brief Hx & Hospital Course: History of Present Illness 69-year-old female presents for evaluation of abdominal pain. The patient endorses a one-week history of diffuse abdominal pain which exacerbated today. She reports nausea and not having a bowel movement for two days. She also reports intermittent fevers for two days. Patient was found to have a pneumoperitoneum. Surgical consult was placed and the patient was evaluated in the ER. Patient was to be DNR/comfort measures only. Refusing blood transfusion or surgical intervention. She does agree to antibiotics and IV fluids. Surgical consultation was obtained with the patient with the emergency room. Patient was refusing all surgical modalities at this time. Patient was also found to be profoundly anemic, for which she is refusing blood transfusion. Patient was given IV hydration, empiric antibiotic therapy. Long discussion was made with the patient's family regarding patient's wishes in addition to the patient being found to be alert and oriented x4. patient will be discharged home with hospice services. All parties are in agreement with plan of care. Physical examination General: Alert and Oriented x3. No acute distress. General ill presentation Eyes: EOMI. Anicteric. HENT: Moist mucous membranes. Lungs: Clear to auscultation bilaterally. No accessory muscle use. Cardiovascular: Regular rate and rhythm. No murmur. No JVD. Abdomen: Distended abdomen Extremities: No edema. Non-tender. Skin: Pallor Neurologic: No focal neurological deficits. CN II-XII grossly intact, but not individually tested. Psychiatric: Cooperative. Appropriate mood and affect. Condition at Discharge: Fair Final Diagnosis/Problems List Sepsis secondary to pneumoperitoneum -? Perforated diverticulum -acute kidney injury, vasomotor nephropathy -anemia -thrombocytosis -hypothyroidism -primary hypertension Discharge Disposition: Hospice - Home Discharge Instruct/Medications Diet: Regular Activity: No Restrictions, As Tolerated Medications: Per accepting provider Miscellaneous Medications [Cholesterol], (Reported) [Furosemide], (Reported) [Levothroxine], (Reported) [Soma], (Reported) [Tramadol], (Reported) 36 Discharge Statement: "Patient was advised to return to the ER or call 911 if any headaches, dizziness, shortness of breath, chest pain, abdominal pain, bleeding, fevers, or worsening of medical condition. Patient was counseled about treatment plan, medications, possible side effects, patientverbalized understanding. All questions were answered to the best of my ability. This discharge took greater then 30 minutes in planning, reviewing documentation, counseling the patient, and discussing with other team members." ASSESSMENT ASSESSMENT Assessment Sepsis secondary to pneumoperitoneum Date of Service: Mar 06, 2025 Billing Provider: TOY ROMEO NP Common Visit Codes: [id number] DISCH DAY >30min TOY ROMEO NP Mar 11, 2025 15:04
== END 2025-03-06 11:05 | DRG 871 ==
LOC: EDBD 18:12 → ER 18:12 → OVERFLOW 23:55 → TELE-EAST 03-03 18:59
PROVIDERS: ADMIT Nurse Practitioner Acute Care; ATTEND Nurse Practitioner Acute Care
DX: A41.9 Sepsis, unspecified organism (principal); N17.0 Acute kidney failure with tubular necrosis; K57.20 Diverticulitis of large intestine with perforation and abscess without bleeding; E03.9 Hypothyroidism, unspecified; D64.9 Anemia, unspecified; I10 Essential (primary) hypertension; Z66 Do not resuscitate; Z51.5 Encounter for palliative care; R65.20 Severe sepsis without septic shock; D75.839 Thrombocytosis, unspecified; K59.00 Constipation, unspecified; F17.210 Nicotine dependence, cigarettes, uncomplicated; E78.5 Hyperlipidemia, unspecified; E87.6 Hypokalemia
CPT/HCPCS: 36415; 74176; 80048; 80053; 80202; 82565; 83605; 85007; 85014; 85018; 85027; 85610; 86850; 86900; 86901; 86920; 87040; 96361; 96365; 96375; G0378; J2405; J2470; J2543; J3480